=== PATIENT | female | born 1985 | race Caucasian/White ===

== ENCOUNTER 2020-12-11 00:47 | Emergency (ER) | payer OTHER ==
[2020-12-11 01:24] LABS: BILIRUBIN NEGATIVE (NEGATIVE); BLOOD TRACE-INTACT Ery/uL (NEGATIVE); CLARITY CLEAR (CLEAR); COLOR YELLOW (YELLOW); GLUCOSE (U) NORMAL (NORMAL); LEUKOCYTES NEGATIVE Leu/uL (NEGATIVE); NITRITE NEGATIVE (NEGATIVE); PROTEIN NEGATIVE (NEGATIVE); SPECIFIC GRAVITY 1.015 (1.001-1.030); UROBILINOGEN 0.2 mg/dL (0.2-1.0)
[2020-12-11 01:36] LABS: SQUAMOUS EPITHELIAL CELLS RARE
[2020-12-11 01:37] LABS: BASOPHIL 1.6 % (0-2); EOSINOPHIL 8.6 % (0-5); HCT 40.5 % (37.0-47.0); LYMPHOCYTE 27.7 % (15-48); MCH 26.7 pg (25.0-31.0); MCHC 32.1 g/dL (32.0-36.0); MCV 83.3 fL (78.0-100.0); MONOCYTE 12.2 % (0-12); MPV 9.6 fL (6.0-9.5); NEUTROPHIL 49.8 % (41-80); NRBC 0; PLT 275 K/uL (150-400); RBC 4.86 M/uL (4.20-5.40); RDW 16.6 % (11.5-14.0)
[2020-12-11 01:57] LABS: ALBUMIN 3.4 g/dL (3.4-5.0); BILIRUBIN - TOTAL 0.2 mg/dL (0.2-1.0); CREATININE 0.74 mg/dL (0.51-0.95); GLOBULIN (CALCULATION) 2.9 g/dL; POTASSIUM 4.2 mmol/L (3.5-5.1); TOTAL PROTEIN 6.3 g/dL (6.4-8.2)
[2020-12-11] MEDS ORDERED: ZOFRAN4 M1 PO (03:45)
== END 2020-12-11 04:01 | disposition home or self-care (01) ==
LOC: FER 00:47
PROVIDERS: Emergency Medicine
DX: R10.9 Unspecified abdominal pain (principal); N20.0 Calculus of kidney; Z98.890 Other specified postprocedural states; Z87.19 Personal history of other diseases of the digestive system; Z88.0 Allergy status to penicillin
CPT/HCPCS: 36415; 80053; 81001; 83690; 85025